=== PATIENT | male | born 1995 | race Asian ===

== ENCOUNTER 2021-01-06 21:11 | Emergency (ER) | payer OTHER ==
[~2021-01-06] VITALS: Ht 170.2 cm; Wt 93.9 kg
--- NOTE | 2021-01-06 21:35 | NUR ---
pt back to this rns room, pt resting up on starla, at bs, reprots coming in after cutting right thumb on a tuna can, bleeding is controlled, cms intact, placed on spo2/bp monitoring at this time. nad, provided warm blankets for comfort, denies additional questions or needs, wctm. call light on lap.
[2021-01-06] MEDS ORDERED: DIPH,PERTUSS(ACELL),TET VAC/PF 0.5 ML IM-VACC ONE ×2 (22:00)
[2021-01-06] MEDS ORDERED: LIDOCAINE-MPF 1%, 5ML INFIL ONE (22:00)
[2021-01-06] MEDS ORDERED: PLEASE ENTER ALLERGIES MC SCH (22:00)
[2021-01-06] MEDS ORDERED: LIDOCAINE-MPF 1%, 5ML ONE ×2 (22:00→23:10)
[2021-01-06 23:05] VITALS: BP 141/86
--- NOTE | 2021-01-06 23:06 | NUR ---
pt resting on gurney, nad, appears comfortable, currently receiving sutures. at bedside, bed in lowest, rails engaged, call light on lap, wctm.
[2021-01-06] MEDS ORDERED: NEOSPORIN OINT. PKT 1 PACKET ONE (23:35)
--- NOTE | 2021-01-06 23:42 | NUR ---
wound dressed. pt provided wound care supplies. instructed in wound care and infection risk signs. pt nad, appears comfortable, denies additional questions or needs at this time. Patient/spouse given discharge instructions and they have confirmed that they understand the instructions. Patient ambulatory with steady gait. no personal belongings left in room after dc.
== END 2021-01-06 23:53 | disposition home or self-care (01) ==
LOC: ED 23:30
DX: S61.011A Laceration without foreign body of right thumb without damage to nail, initial encounter (principal); G89.29 Other chronic pain; M79.641 Pain in right hand; X58.XXXA Exposure to other specified factors, initial encounter; Y93.89 Activity, other specified; Y92.89 Other specified places as the place of occurrence of the external cause; Y99.8 Other external cause status
CPT/HCPCS: 12041; 90471; 90715; 99284